=== PATIENT | male | born 1985 | race Caucasian/White ===

== ENCOUNTER 2016-11-21 07:26 | Emergency (ER) | payer BC ==
[~2016-11-21] VITALS: Ht 180.3 cm; Wt 106.0 kg
[2016-11-21 07:34] VITALS: BP 139/82
[2016-11-21] MEDS ORDERED: TRAMADOL HCL50 MG PO (09:55)
== END 2016-11-21 10:21 | disposition home or self-care (01) ==
LOC: EME 07:26
DX: S39.001A Unspecified injury of muscle, fascia and tendon of abdomen, initial encounter (principal); X50.0XXA Overexertion from strenuous movement or load, initial encounter; Y93.22 Activity, ice hockey
CPT/HCPCS: 72192; 73552; 99281; 99284